=== PATIENT | male | born 2000 | race Caucasian/White ===

== ENCOUNTER 2024-06-22 04:21 | Emergency (ER) | payer OTHER ==
[~2024-06-22] VITALS: Ht 175.3 cm; Wt 65.0 kg
[2024-06-22 04:25] VITALS: BP 118/71; PULSE 100; RESP 18; TEMP 36.6; O2SAT 100
[2024-06-22] MEDS: ACETAMINOPHEN 325MG TABLET PO ONE (05:22)
[2024-06-22 05:38] LABS: BASOPHILS % 0.8 % (0.0-2.0); EOSINOPHILS % 0.8 % (0.0-5.0); HEMATOCRIT. 41.8 % (42.0-52.0); HEMOGLOBIN. 14.1 g/dL (14.0-18.0); LYMPHOCYTES % 21.3 % (20.0-50.0); MEAN CORPUSCULAR HEMOGLOBIN 30.4 pg (28.0-32.0); MEAN CORPUSCULAR HGB CONC 33.8 g/dL (31.0-37.0); MEAN PLATELET VOLUME 9.5 fl (7.4-10.4); NEUTROPHILS % 71.1 % (40.0-76.0); PLATELET 200 x1000/uL (130-400); RED BLOOD CELL COUNT 4.65 mill/uL (4.7-6.1); RED CELL DISTRIBUTION WIDTH 13.1 % (11.6-14.6); WHITE BLOOD COUNT 7.9 x1000/uL (4.5-11.0)
[2024-06-22 05:48] LABS: CHLORIDE 108 mEq/L (98-107); POTASSIUM 3.8 mEq/L (3.5-5.1); SODIUM 144 mEq/L (136-145)
[2024-06-22 05:49] LABS: CALCIUM 9.1 mg/dL (8.7-10.4); CARBON DIOXIDE 28 mEq/L (21-32)
[2024-06-22 05:54] LABS: CREATININE 0.9 mg/dL (0.6-1.3); GLUCOSE 103 mg/dL (70-105); UREA NITROGEN BLOOD 16 mg/dL (9-23)
[2024-06-22] MEDS ORDERED: TOPUD PO (07:02)
== END 2024-06-22 07:25 | disposition home or self-care (01) ==
LOC: ER 04:21
DX: M79.18 Myalgia, other site (principal)
CPT/HCPCS: 36415; 73502; 80048; 85025; 99284